=== PATIENT | female | born 1980 | race Caucasian/White ===

== ENCOUNTER → 2025-06-28 06:52 | Outpatient (REF) | payer BC, SELFPAY | LOC: HWRAD 06:52 | PROVIDERS: ATTENDING PHYSICIAN Otolaryngology; FAMILY PHYSICIAN Family Medicine | DX: E04.1 Nontoxic single thyroid nodule (principal) | CPT/HCPCS: 76536 ==

== ENCOUNTER 2025-07-15 14:18 | Emergency (ER) | payer BC, SELFPAY ==
[2025-07-15 14:19] VITALS: BP 134/90
[2025-07-15 14:44] LABS: Hematocrit 38.9 % (37.0-47.0); Hemoglobin 12.9 g/dL (12.0-16.0); Mean Corp Hgb Conc. 33.2 g/dL (33.0-37.0); Mean Corpuscular Volume 85.1 fL (81.0-99.0); Nucleated Red Blood Cells % 0 %; Platelet Count 298 10^3/uL (130-400); Red Cell Dist. Width 13.4 % (11.5-14.5)
[2025-07-15 15:09] LABS: ALT (SGPT) 19 U/L (0-35); AST (SGOT) 20 U/L (14-36); Albumin 4.4 g/dl (3.5-5.0); Alkaline Phosphatase 44 U/L (38-126); Blood Urea Nitrogen 15 mg/dl (7-17); Calcium 9.3 mg/dl (8.4-10.2); Carbon Dioxide 27 mmol/L (22-30); Chloride 105 mmol/L (98-107); Glucose 107 mg/dl (70-99); Potassium 3.9 mmol/L (3.5-5.1); Sodium 138 mmol/L (135-145); Total Protein 6.8 g/dl (6.3-8.2); eGFR > 60.00
[2025-07-15 15:46] VITALS: BP 105/56; BMI 25.2
--- NOTE | 2025-07-15 15:52 | ED.GENMED ---
History of Present Illness
General
Chief Complaint: Dizziness
Time Seen by Provider: 07/15/25 15:52
History of Present Illness
History of Present Illness:
FOCUSED PAST MEDICAL HISTORY
- Reports being on beta-kaylan for high heart rate
REVIEW OF OLD RECORDS
- No old records available for review however I did review EMS notes from [facility] which indicates onset of dizziness at 1 PM today along with generalized weakness and dizziness since March. EMS noted that the patient indicated that she has
been on beta-kaylan for heart rate control for the past 3 years. EMS EKG was unremarkable.
Note:
CHIEF COMPLAINT(S)
Patient experiencing dizziness, leg weakness, and recent onset of food allergies.
HISTORY OF PRESENT ILLNESS
The patient is a 44-year-old female who was brought in by ambulance from her place of work after experiencing dizziness and lightheadedness following lunch. She described a sensation of potential faintness but did not experience chest pain or
shortness of breath. Earlier in the day, she underwent blood testing for food allergies, having previously undergone skin tests which confirmed several new food allergies. Post-lunch, the patient experienced mild tongue tingling but no throat
closure feeling or significant allergic reaction. She recently discovered food allergies after visiting an financial institution vice president.
The patient reports ongoing leg weakness since March, describing it as a general weakness rather than focal and comparing it to sensations of fatigue as seen in conditions like anemia or Lyme disease. She denies any objective weakness on exertion
and reports no issues with exercise such as lifting, indicating routine activities do not typically exacerbate symptoms.
The patient is on nadolol for control of high resting heart rate and reports resting measurements of blood pressure and heart rate as stable. Current blood pressure is noted as 117/71 mmHg during examination.
ADDITIONAL HISTORY OBTAINED FROM SOURCES OTHER THAN THE PATIENT
The ambulance was called by a colleague at the patients workplace due to concerns regarding her condition after lunch.
CHRONIC MEDICAL CONDITIONS SIGNIFICANTLY AFFECTING CARE
The patient has a history of sustained high resting heart rate managed with nadolol.
SOCIAL HISTORY
The patient works as a teacher.
MEDICATIONS
Nadolol 1 stay
REVIEW OF SYSTEMS
- Neurological: Reports dizziness and transient lightheadedness, no focal neurological deficit observed.
- Cardiovascular: History of high resting heart rate controlled by medication.
- Musculoskeletal: Complains of general leg weakness without noted exertional decline.
- Allergic/Immunological: Recent onset of multiple food allergies, confirmed via skin and blood tests.
- No reports of chest pain or shortness of breath.
PHYSICAL EXAM
General: Alert, no acute distress.
Skin: Warm, dry.
Head: Normocephalic, atraumatic.
Neck: Supple, trachea midline.
Eyes, Ears, Nose, Mouth, and Throat: Oral mucosa moist; tongue tingling reported post-meal but otherwise negative for swelling or significant allergic reaction. Normal posterior oropharynx. There is no uvular edema.
Cardiovascular: Normal peripheral perfusion, no edema.
Respiratory: Respirations are non-labored. Breath sounds are clear and equal, normal respiratory rate
Gastrointestinal: Abdomen nondistended.
Back: Normal range of motion, normal alignment.
Musculoskeletal: Normal range of motion, normal strength noted upon proximal thigh testing.
Neurological: Alert and oriented; normal reflexes; no focal neurological deficit observed.
Psychiatric: Cooperative, appropriate mood & affect.
PROBLEM LIST
Acute:
1. Dizziness and lightheadedness post-prandial.
2. Tingling tongue post-exposure to new food allergens.
3. Leg weakness, chronic since March.
Chronic:
1. High resting heart rate controlled with Metoprolol.
PLAN
- Referral to a neurologist for further evaluation of unexplained leg weakness.
- Monitoring blood pressure and symptomatic management as previously effective.
- Patient advised on avoidance and management of food allergens.
- Discharge home with instructions to follow up with a neurologist for persistent leg weakness symptoms.
DIFFERENTIAL DIAGNOSIS
The Differential Diagnosis includes, in no particular order and is not limited to:
1. Food allergy reaction
2. Orthostatic hypotension
3. Benign paroxysmal positional vertigo
4. Anxiety or stress-induced symptoms
5. Neurological condition (e.g., multiple sclerosis)
6. Anemia
7. Electrolyte imbalance
8. Lyme disease
9. Postural orthostatic tachycardia syndrome
10. Adverse reaction to Metoprolol
Disposition:
SUMMARY OF ENCOUNTER
The patient, a 44-year-old female, was seen in the emergency department after experiencing dizziness and lightheadedness following lunch. Additionally, she has a history of leg weakness since March and recent onset of food allergies. Management in
the emergency department included a review of her medical history and examination of her symptoms. Her dizziness post-prandial and tingling sensation in the tongue after exposure to new allergens were noted, alongside chronic leg weakness. The
chronic nature of her symptoms suggested a nonacute condition.
DISPOSITION
Discharge.
ASSESSMENT
The patients symptoms of dizziness and tongue tingling post-meal possibly relate to food allergies; however, no acute allergic reaction was noted. Chronic leg weakness requires further investigation, possibly pointing to a neurological condition.
The patients stable high resting heart rate is managed with nadolol.
PLAN
- Referral to a neurologist for further evaluation of persistent leg weakness.
- Patient advised on avoidance of identified food allergens and management strategies for potential allergic reactions.
- Monitoring blood pressure and symptoms associated with Metoprolol as per previous management.
- Patient instructed to follow up with a neurologist for ongoing leg weakness issues.
INDEPENDENT REVIEW OF LABS AND INTERPRETATION OF TESTS
My independent review of the CBC and chemistry is unremarkable.
My independent interpretation of the EKG is unremarkable.
MEDICATION RECONCILIATION
Metoprolol.
MEDICAL DECISION MAKING
Number and Complexity of Problems Addressed:
Chronic conditions affecting care include high resting heart rate managed with nadolol, recent onset of multiple food allergies, and chronic leg weakness.
Data:
Category 1
Non-emergency department records reviewed and patient history were considered in decision-making.
Category 2
Clinical information obtained from an independent historian was reviewed.
Category 3
None.
Risk:
Consideration of Admission/Observation: Escalation of care including admission/observation was considered given the complexity and risk of the patients presenting complaint, exam findings, and their underlying comorbidities. However, ultimately I
feel the patient is safe for outpatient management with close follow-up. Reasoning: Work-up reassuring, does not reveal any acute life/organ-threatening processes, patients symptoms well-controlled upon reevaluation, reexamination is reassuring,
vitals are stable, patient agreeable with discharge, reliable for follow-up.
DIAGNOSIS
1. Dizziness and lightheadedness
2. Chronic leg weakness - M79.602 (Unspecified disorder of the soft tissues of left lower limb)
3. Recent onset of food allergies - T78.40XA (Allergy, unspecified, initial encounter)
EKG
- Sinus 75, no acute ST abnormality, no old compare
LABS
- CBC and chemistries unremarkable
- Labs unremarkable
- Unremarkable vital signs
- Normal physical examination
- Some of her symptoms are subacute/chronic
- I have also given her contact information for neurology as an outpatient
Phy Exam
Physical Exam
Physical Exam:
See HPI
Course
Orders/Labs/Results
Orders:
Orders
07/15/25 14:23
Electrocardiogram (*1) Urgent
Reason for Study: Vertigo / Dizzy
EKG- Treatment ONCE
07/15/25 14:26
Complete Blood Count/With Diff Urgent
Comprehensive Metabolic Panel Urgent
Abnormal Lab Results
07/15/25
14:26
Glucose 107 H mg/dl
(70-99)
07/15/25 14:26
07/15/25 14:26
Vital Signs
Initial and Last Documented VS:
Initial Vital Signs
Temp BP Pulse Ox
37.4 C 134/90 82
07/15/25 14:19 07/15/25 14:19 07/15/25 14:19
Last Documented Vital Signs
Temp Pulse BP Pulse Ox
37.4 C 84 111/71 99
07/15/25 14:19 07/15/25 16:00 07/15/25 16:00 07/15/25 16:00
*Pulse Oximetry
SaO2: 100
Oxygen Mode of Delivery: Room air
Patient hypoxic: no
*Critical Care Note
Total Time (30-74mins, 75-104mins- exclusive of procedures): Not Applicable
ED Attending Note
-
Portions of this chart may have been created with voice recognition software.� Occasional wrong word or��sound alike� substitutions may have occurred due to the inherent limitations of voice recognition software.
Discharge Plan
Departure
Patient Disposition: Home (Routine Discharge)
Date of Disposition: 07/15/25
Time of Disposition: 16:40
Patient with high blood pressure during this ER visit?: Yes
Discharge Problem:
Dizziness
Instructions: Dizziness, BLOOD PRESSURE
Referrals:
Cherelle Hinojosa MD [Non-Admitting Privileges, Neurology]
Ghulam Turner MD [Active, Neurology]
Activity Restrictions/Additional Instructions:
Given your reported lower extremity weakness, I have given you the contact information for local neurologist. Return if worse or other concerns. EKG and blood work are unremarkable.
Interventions
Interventions:
*Risk Screen - Suicide Last Done: 07/15/25 14:22
*General Assessment Last Done: 07/15/25 15:47
*Neglect/Abuse Screening Last Done: 07/15/25 14:22
*ED- Fall Risk Assessment Last Done: 07/15/25 15:47
*ED COVID-19 Vaccine History Last Done: 07/15/25 15:47
*ED Influenza Vaccine History Last Done: 07/15/25 15:47
ED- Neurological Assessment Last Done: 07/15/25 15:47
ED- Cardiac Assessment Last Done: 07/15/25 15:47
ED Swallowing Screen Last Done: 07/15/25 15:47
Discharge Date and Time
Print Language: JORDANIAN
[2025-07-15 16:00] VITALS: BP 111/71
== END 2025-07-15 16:58 | disposition home or self-care (01) ==
LOC: EMR 14:18
PROVIDERS: Emergency Medicine; EMERGENCY PHYSICIAN Emergency Medicine
DX: R42 Dizziness and giddiness (principal); R53.1 Weakness; Z91.018 Allergy to other foods
CPT/HCPCS: 99284; 80053; 85025; 93005